=== PATIENT | male | born 1970 | race Caucasian/White ===

== ENCOUNTER 2017-03-11 14:22 | Emergency (ER) | payer OTHER ==
--- NOTE | 2017-03-11 14:33 | CPEKG ---
Heart Rate: 69 RR Interval: 870 P-R Interval: 188 QRSD Interval: 148 QT Interval: 448 QTC Interval: 480 P [place]: 51 QRS [place]: 95 T Wave [place]: -7 EKG Severity - ABNORMAL ECG - EKG Impression: SINUS RHYTHM EKG Impression: RBBB AND LPFB Electronically Signed By: Junie Parker 11-Mar-2017 15:20:40
[2017-03-11] MEDS ORDERED: ASPIRIN 81 MG CHEWABLE TAB ONE (14:35)
[2017-03-11] MEDS ORDERED: NITROGLYCERIN 0.4 MG BTL SL ONE (14:35)
--- NOTE | 2017-03-11 14:42 | EDPHY ---
HPI/HX/ROS/PE/MDM Narrative: CHIEF COMPLAINT: Chest pain, tingling and numbness in left arm and legs HPI: The patient is a 46 y/o male with a history of hypertension and hypercholesterolemia complaining of chest pain and tingling and numbness in his left side. He had a single episode of chest pain without known etiology 10 years ago which was investigated using a stress test. 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 Just before 2:00 PM, while getting into the car to attend a recital he began experiencing an "air bubble" feeling in his chest. Around 2:10 PM, 20 minutes ago, he started feeling numbness and tingling in his left arm and leg. The "air bubble" feeling continued and was described as an annoying "need to burp feeling" and progressed to a tight feeling. He describes his left arm and leg as cold feeling with less sensation than normal and worse laterally. He also notes a tingling spot in the back, left side of his skull and a feeling that something is wrong. He denies exertion or other precipitating factors. He denies any aggrevating or improving factors. He denies any associated symptoms. REVIEW OF SYSTEMS: Aside from elements discussed in the HPI, a comprehensive 10-point review of systems was reviewed and is negative. 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 ENT:Eyes are normal to inspection. ENT inspection normal. Neck: Normal inspection. Full range of motion. Respiratory: No respiratory distress. Breath sounds normal bilaterally. Cardiovascular: Regular rate and rhythm. Strong peripheral pulses. Normal cap refill. Abdomen:The abdomen is nontender to palpation. There are no peritoneal signs. There are normal bowel sounds. Back: Normal to inspection. No tenderness to palpation. Skin: Normal color. No rash. Warm and dry. Extremities: Normal appearance. Full range of motion. Neuro: Oriented x3. Normal motor function. Normal sensory function. No pronator drift. Normal finger to nose bilaterally. Normal heel to riddle. Normal cranial nerves. EOMI. LTS normal throughout LUE and LLE. ED Course: Study: CT of the head Indication: Left-sided tingling and numbness Results: CT scan of the head was obtained. The results of the study are: normal The study was read by the radiologist, Dr. Palacios. I viewed the images myself on the PACS system. EKG was ordered and interpreted by myself. Right bundle present. Please see [employer] system for official reading. Study: X-ray of the chest Indication: Chest pain Results: X-ray of the chest was obtained. The results of the study are: normal The study was read by the radiologist, Dr. Palacios. I viewed the images myself on the PACS system. 1513: I spoke with Dr. Palacios, radiology, who confirms normal CT. 1801: The patient's second troponin is negative. I suggest a chest CT for further evaluation. He refuses. I agree to discharge him with follow-up tomorrow with cardiology. Follow-up instructions and return precautions given. MDM: This patient presents with left-sided chest pain, associated with left arm tingling, and somewhat unusually, left leg tingling. The combination of chest pain and LUE tingling certainly raises the concern for ACS, but thankfully no ST elevation is seen on ECG (although RBBB and LPFB is present) and troponin x 2 are negative. A CTH was performed to ensure that L-sided symptoms were not due to a TRAFFIC MONITOR SPECIALIST process. On re-exam, the patient's extremity symptoms have completely resolved, but his chest pain remains. I had an extensive discussion with him regarding our workup and possible etiologies, and recommended we perform a CTA of the chest to rule out PE and TAD, but he declines. I also offered admission for observation and further workup, but he declines. I explained to him that his presentation is both unusual and concerning, and he acknowledges that he is knowingly taking a risk by refusing further workup here today. He promises to return to the ED immediately if symptoms worsen. He understands we cannot fully rule out ACS, PE, TAD or CVA, among other potential diseases without further testing. - Data Points Imaging Results: Imaging Impressions Head CT 03/11/17 14:44 Impression: Normal noncontrast CT of the brain. Results called to Dr. Esteban Banks at 3:10 PM at the time of the interpretation. Chest X-Ray 03/11/17 14:53 Impression: Normal chest. Imaging: Discussed imaging studies w/ electron beam operator Radiologist, I viewed and interpreted images myself Laboratory Results: Laboratory Results 03/11/17 14:32 03/11/17 14:32 03/11/17 03/11/17 03/11/17 16:54 14:32 14:32 WBC 7.18 10^3/uL 10^3/uL (3.80-9.50) RBC 5.04 10^6/uL 10^6/uL (4.40-6.38) Hgb 14.9 g/dL g/dL (13.7-17.5) Hct 43.8 % % (40.0-51.0) MCV 86.9 fL fL (81.5-99.8) MCH 29.6 pg pg (27.9-34.1) MCHC 34.0 g/dL g/dL (32.4-36.7) RDW 12.2 % % (11.5-15.2) Plt Count 252 10^3/uL 10^3/uL (150-400) MPV 10.3 fL fL (8.7-11.7) Neut % (Auto) 49.7 % % (39.3-74.2) Lymph % (Auto) 38.7 % % (15.0-45.0) [place] % (Auto) 9.1 % % (4.5-13.0) Eos % (Auto) 1.3 % % (0.6-7.6) Baso % (Auto) 0.8 % % (0.3-1.7) Nucleat RBC Rel Count 0.0 % % (0.0-0.2) Absolute Neuts (auto) 3.57 10^3/uL 10^3/uL (1.70-6.50) Absolute Lymphs (auto) 2.78 10^3/uL 10^3/uL (1.00-3.00) Absolute Monos (auto) 0.65 10^3/uL 10^3/uL (0.30-0.80) Absolute Eos (auto) 0.09 10^3/uL 10^3/uL (0.03-0.40) Absolute Basos (auto) 0.06 10^3/uL 10^3/uL (0.02-0.10) Absolute Nucleated RBC 0.00 10^3/uL 10^3/uL (0-0.01) Immature Gran % 0.4 % % (0.0-1.1) Immature Gran # 0.03 10^3/uL 10^3/uL (0.00-0.10) Sodium 141 mEq/L mEq/L (134-144) Potassium 4.1 mEq/L mEq/L (3.5-5.2) Chloride 103 mEq/L mEq/L (97-110) Carbon Dioxide 24 mEq/l mEq/l (22-31) Anion Gap 14 mEq/L mEq/L (8-16) BUN 19 mg/dL mg/dL (7-23) Creatinine 1.1 mg/dL mg/dL (0.7-1.3) Estimated GFR > 60 Glucose 92 mg/dL mg/dL (70-100) Calcium 9.8 mg/dL mg/dL (8.5-10.4) Troponin I < 0.012 ng/mL ng/mL < 0.012 ng/mL ng/mL (0.000-0.034) (0.000-0.034) Medications Given: Discontinued Medications Al Hydroxide/Mg Hydroxide (Maalox Susp) 30 ml PO ONCE ONE Stop: 03/11/17 16:15 Last Admin: 03/11/17 16:21 Dose: 30 ml Aspirin (Aspirin) 324 mg PO EDNOW ONE Stop: 03/11/17 14:44 Last Admin: 03/11/17 14:48 Dose: 324 mg Hyoscyamine Sulfate (Levsin, Hyomax-Sl) 0.25 mg PO ONCE ONE Stop: 03/11/17 16:15 Last Admin: 03/11/17 16:21 Dose: 0.25 mg Lidocaine (Lidocaine 2% Viscous) 15 ml PO ONCE ONE Stop: 03/11/17 16:15 Last Admin: 03/11/17 16:21 Dose: 15 ml Lorazepam (Ativan Injection) 0.5 mg IVP EDNOW ONE Stop: 03/11/17 14:44 Last Admin: 03/11/17 14:48 Dose: 0.5 mg General Time Seen by Provider: 03/11/17 14:33 Initial Vital Signs: Initial Vital Signs Temperature (C) 36.7 C 03/11/17 14:25 Heart Rate 88 03/11/17 14:25 Respiratory Rate 16 03/11/17 14:25 Blood Pressure 159/100 H 03/11/17 14:25 O2 Sat (%) 98 11/12/17 14:25 O2 Delivery Mode Room Air O2 (L/minute) 2 Allergies/Adverse Reactions: No Known Allergies Allergy (Unverified 03/11/17 14:24) Home Medications: Medication Instructions Recorded Losartan Potassium 03/11/17 Departure - Departure Disposition: Home, Routine, Self-Care Clinical Impression: Arm paresthesia, left Chest pain Qualifiers: Chest pain type: unspecified Qualified Code(s): R07.9 - Chest pain, unspecified Condition: Good Instructions: Chest Pain (ED), Paresthesia (ED) Additional Instructions: 1. Follow-up with cardiology tomorrow. 2 Return to the ED for any worsening of condition. Referrals: GIOVANI VICTOR [Other] - As per Instructions Alexandrea Kim MD [Medical Doctor] - As per Instructions Report Scribed for: Esteban Banks Report Scribed by: Reshma Sylvester Date of Report: 03/11/17 Time of Report: 14:53 Physician Review and Approval Statement: Portions of this note were transcribed by an ED scribe. I personally performed the history, physical exam, and medical decision making; and confirm the accuracy of the information in the transcribed note.
[2017-03-11] MEDS ORDERED: LORazepam 2 MG/ML INJ IVP ONE (14:43)
[2017-03-11] MEDS ORDERED: ASPIRIN 81 MG CHEWABLE TAB PO ONE (14:43)
[2017-03-11 14:48] LABS: % IMMATURE GRANULYOCYTES 0.4 % (0.0-1.1); ABSOLUTE IMMATURE GRANULOCYTES 0.03 10^3/uL (0.00-0.10); ADD DIFF? NO; ADD MORPH? NO; ADD SCAN? NO; ATYPICAL LYMPHOCYTE FLAG 0 (0-99); FRAGMENT RBC FLAG 0 (0-99); HEMATOCRIT 43.8 % (40.0-51.0); HEMOGLOBIN 14.9 g/dL (13.7-17.5); LEFT SHIFT FLG 0 (0-99); LIPEMIA HEMOLYSIS FLAG 90 (0-99); MEAN CELL HEMOGLOBIN 29.6 pg (27.9-34.1); MEAN CELL VOLUME 86.9 fL (81.5-99.8); MEAN PLATELET VOLUME 10.3 fL (8.7-11.7); PLATELET CLUMPS FLAG 20 (0-99); PLATELET COUNT 252 10^3/uL (150-400); RED BLOOD CELL COUNT 5.04 10^6/uL (4.40-6.38); RED CELL DISTRIBUTION WIDTH 12.2 % (11.5-15.2)
[2017-03-11 14:50] VITALS: O2SAT 100
[2017-03-11 15:06] LABS: ANION GAP 14 mEq/L (8-16); CALCIUM 9.8 mg/dL (8.5-10.4); CARBON DIOXIDE 24 mEq/l (22-31); CHLORIDE 103 mEq/L (97-110); CREATININE 1.1 mg/dL (0.7-1.3); GLOMERULAR FILTRATION RATE > 60; GLUCOSE 92 mg/dL (70-100); POTASSIUM 4.1 mEq/L (3.5-5.2); SODIUM 141 mEq/L (134-144)
[2017-03-11 15:17] LABS: TROPONIN I < 0.012 ng/mL (0.000-0.034)
--- NOTE | 2017-03-11 16:09 | CPEKG ---
Heart Rate: 71 RR Interval: 845 P-R Interval: 180 QRSD Interval: 148 QT Interval: 428 QTC Interval: 466 P [place]: 65 QRS [place]: 87 T Wave [place]: -3 EKG Severity - ABNORMAL ECG - EKG Impression: SINUS RHYTHM EKG Impression: PROBABLE LEFT ATRIAL ABNORMALITY EKG Impression: RBBB AND LPFB Electronically Signed By: Boyd Malave 13-Mar-2017 19:50:47
[2017-03-11] MEDS ORDERED: LIDOCAINE 2% VISCOUS 15 ML UDCUP PO ONE (16:14)
[2017-03-11] MEDS ORDERED: MAG HYDROX/AL HYDROX/SIMETH 30 ML UDCUP PO ONE (16:14)
[2017-03-11] MEDS ORDERED: HYOSCYAMINE SULFATE 0.125 MG TAB PO ONE (16:14)
[2017-03-11 16:45] VITALS: RESP 18
[2017-03-11] MEDS ORDERED: IOPAMIDOL (ISOVUE 370) 100 ML BTL IV ONE (17:54)
[2017-03-11 18:18] VITALS: BP 139/81; PULSE 62; TEMP 97.9
== END 2017-03-11 18:18 | disposition home or self-care (01) ==
DX: R07.9 Chest pain, unspecified (principal); R20.2 Paresthesia of skin; I10 Essential (primary) hypertension
CPT/HCPCS: 96374; J2060; Q9967